=== PATIENT | male | born 1960 | race Two or more races ===

== ENCOUNTER 2025-04-19 02:44 | Inpatient (IN) | payer MEDICAID ==
[~2025-04-19] VITALS: Ht 160 cm; Wt 79.0 kg
--- NOTE | 2025-04-19 03:50 | Physician Documentation ---
History of Present Illness ~ General Chief Complaint: See Chief Complaint Stated Complaint: XFER Time Seen by MD: 03:44 History of Present Illness Initial Comments This is a 64-year-old gentleman who does not speak any Somali, presents as a transfer from [facility] for higher level of care and nephrology consultation. Record reviewed. The gentleman presented to the outside facility for evaluation of progressive worsening tremor in bilateral upper extremities. It has been going on for weeks, how ever got markedly worse for the last four days, progress to full body tremors with gait instability and weakness. No particular palliating or aggravating factors. No lateralizing weakness, the weakness is generalized. Denies any fever, chills, headache, nausea, vomiting, diarrhea. The gentleman has a known history of kidney disease, and was told before that he may need to transitioned to dialysis. Laboratory studies from the outside facility reviewed. CBC shows white count of 6.9, hemoglobin of 8.8 consistent with a anemia chronic kidney disease. Platelets are normal at 255. Chemistry showed borderline potassium of 5.4. BUN/creatinine showed RADHA on CKD of 74/5.4. Phosphorus was also elevated at 5.6. Troponin and BNP were negative. Coagulation panel shows INR of one. Normal. UA is nondiagnostic for UTI. CT head was obtained showed no acute intracranial process. Neurology was consulted. They evaluated the patient and recommended EEG as well as MRI. They do feel however that this is metabolic process. Medication Reconciliation Allergies: Coded Allergies: No Known Allergies (Unverified , 04/19/25) Review of Systems All Other Systems at this time: Reviewed and Negative Physical Exam Physical Exam Vital Signs: Source: Oral, Heart Rate: 83, Respiratory Rate: 15, BP: 162/76, Pulse Oximetry: 96, Weight: 68.180 Oxygen Flow Rate: 0 Physical Exam Physical examination: GENERAL: Awake, alert, oriented, GCS 15, no apparent distress, non-toxic appearing, answers questions, follows commands appropriately. I did not appreciate any tremor at this time. HEENT: Atraumatic, normocephalic, pupils equal, extraocular muscles intact Active gross movements, sclerae anicteric, mucus membranes moist, no stridor. NECK: Midline, no JVD CARDIOVASCULAR: Good skin perfusion without evidence of pallor, mottling. PULMONARY: Nonlabored, symmetric chest rise, no audible wheezing, no accessory muscle use, no respiratory distress, speaking in full sentences. GASTROINTESTINAL: Not distended. NEUROLOGIC: Lucid with normal mental status. Normal facial symmetry. Moves all extremities symmetrically and with purpose. No truncal ataxia. Speech is fluid without evidence of dysarthria or aphasia, no focal deficits appreciated. Gait not tested. EXTREMITIES: Acute deformities Skin: warm, dry PSYCHIATRIC: Normal affect, normal insight, normal concentration. Focused exam: [] Progress Results/Orders Results/Orders Vital Signs 04/19/25 02:49 Pulse 83 Resp 15 B/P (MAP) 162/76 Pulse Ox 96 O2 Flow Rate 0 Medical Decision Making Findings Facility Status: ED Holds, RME process The plan was discussed with the patient, who demonstrates clear understanding of the plan and is in agreement with the plan unless otherwise noted in the chart. All questions have been answered, all concerns were addressed unless otherwise documented. I was available throughout their ED stay for frequent reassessment and questions. Differential Diagnoses (considered and possible or likely): [Progression of chronic kidney disease, anemia of chronic kidney disease, potential need for dialysis, hyperkalemia, tremor secondary to uremia, less likely seizures] ??Differential Diagnoses (considered and unlikely, not requiring evaluation currently): [No evidence of trauma or lateralizing signs.] MDM Data Please see [facility] for the following: Independent Historians and external Records Review. Historian: [Patient] Independent Historians: ?[Record review] Medication Management: [Reviewed medication list] Social History and determinants: [Reviewed] Please see the body of the note for the following: Any independent int erpretations of ECG, imaging studies. All vitals signs/haemodynamics, ordered tests were independently reviewed and interpreted by myself. Nursing triage complaint and vitals reviewed, additional nursing notes were reviewed as available and I agree unless otherwise noted or documented in contradiction in the chart Vital Signs: Independently reviewed Labs: Independently interpreted Imaging: Independently interpreted Old Medical Records: Independently reviewed, see HPI for relevant summary and information Pulse Oximetry: [96%] interpreted as [normal on room air] by me [Merchandiser: [Regular Rate, Regular rhythm, no ectopy, NSR] reviewed and interpreted by me] Additionally notably showing: [Hemodynamically stable] Tests considered but not ordered include: [MRI and EEG can be done on an inpatient basis] Social Determinants of Health Impact: Patient was evaluated in [facility] [place] access to healthcare due to below par ratio of patient to medical providers. [] Comorbid Conditions Impacting Present Evaluation and Care/Treatment: [Chronic kidney disease] Management Discussions with other Healthcare Providers: [Hospitalist regarding admission] Treatment and Disposition Medication Management (Given or considered): []. See EMR for details Consideration for Hospitalization/Escalation/Deescalation of Care: Admission for observation has been considered, and appears to be necessary for neurology consultation and further management of his CKD and evaluation of tremor. ?ED Course:?[No clinical deterioration] ?Shared decision making:?[] Code status:?FULL Please see the full Electronic Medical Record for full details of nursing documentation, medications list, other records of complete past medical history and conditions, vital signs, laboratory studies, and any radiologic study interpretations by radiologists. Portions of this note were completed using [employer] dictation software and as a result there may exist minor errors in spelling. I have reviewed elements of past family and social history and agree as included in note. Departure Time of Disposition: 03:52 Disposition: 09 ADMITTED INPATIENT Admitted to Inpatient Unit: to hospitalist Impression: Primary Impression: Tremor Additional Impressions: Acute kidney injury Chronic kidney disease Hyperkalemia Anemia of chronic disease Condition: Stable Referrals: NO PRIMARY CARE PROVIDER (PCP) Signature Scribe Signature: No scribe Attestation: This note accurately reflects clinical decisions, work performed by myself, DO ANDERS Johnson NICHOLAS M DO Apr 19, 2025 03:50
--- NOTE | 2025-04-19 04:10 | ELECTROCARDIOGRAPH REPORT ---
[facility] Test Date: 2025-04-19 Test Time: 04:08:15 Pat Name: SHER HAYWOOD Department: [facility]- Patient ID: [facility]-[id number] Room: [place] [id number] Gender: M Blood Bank Order Control Clerk: : 1960 Requested By: BRAULIO MCNAMARA Order Number: [id number] Reading MD: Dr. Sanjeev Tidwell Measurements Intervals [place] Rate: 79 P: 39 [place]: 167 QRS: 17 QRSD: 85 T: 23 QT: 375 QTc: 430 Interpretive Statements Sinus rhythm Electronically Signed On 04-19-2025 20:57:[address] Sanjeev Tidwell Please click the below link to view image of tracing.
[2025-04-19] MEDS ORDERED: magnesium sulf-water 4G/100mL 100 ML IV PRN (04:30)
[2025-04-19] MEDS ORDERED: potassium Cl 40MEQ/1/2NS 520ml 520 ML IV PRN (04:30)
[2025-04-19] MEDS ORDERED: potassium Cl 20 mEq SR tablet PO PRN (04:30)
[2025-04-19] MEDS ORDERED: magnesium sulf-water 2g/50mL 50 ML IV PRN (04:30)
[2025-04-19] MEDS ORDERED: mag hydrox/Alum hydrox/simeth 30ml oral suspension PO PRN (04:30)
[2025-04-19] MEDS ORDERED: ondansetron/PF 4mg/2ml inj IV PRN (04:30)
[2025-04-19] MEDS ORDERED: magnesium hydroxide 30ml (MOM) UD suspension PO PRN (04:30)
[2025-04-19 04:59] LABS: MEAN PLATELET VOLUME 7.7 FL (7.4-10.4); RED CELL DISTRIBUTION WIDTH 14.1 % (11.5-14.5)
--- NOTE | 2025-04-19 05:11 | HISTORY AND PHYSICAL-Residence ---
History & Physical Providers to Resident Creating Document: STEPHON LEPE, RES ~ History of Present Illness Reason for Admit\Complaint: Tremors History of Present Illness This is a 64-year-old Tunisian-speaking male with a history of type 2 diabetes, CKD, hypertension was transferred from [place] for tremors. Most of the history was taken with the help of a Tunisian-speaking nurse and a train reservation clerk. The tremors started four days ago initially noted in his hands, later progressed to diffuse tremors including his head and trunk, leading to gait instability and weakness. He denied any headache, changes in vision, any focal weakness. Also denied any changes in his speech or facial asymmetry. Denied any recent changes in medication. Also denies any alcohol intake, caffeine, nicotine, drug use. He has a history of CKD and was told that he needs a referral for dialysis. Reports that two days ago he had decreased urine. Denies any burning sensation in the urine. Labs reviewed at the other facility showed a BUN of seventy-four, creatinine of 5.36. Neurology was consulted, recommended to consider EEG and MRI, but is of the opinion that it is likely mostly metabolic. Patient was transferred here for nephrology consultation. CT head done at that facility showed no acute intracranial abnormalities Patient reported that few years ago he did have seizures while he was in [place], was given some kind of injection which relieved tremors. Allergies: Coded Allergies: No Known Allergies (Unverified , 04/19/25) Past Medical History Past Medical History Hypertension Diabetes type 2 Diabetic neuropathy CKD Past Surgical History Surgical History Comment No surgical history Past Social History Social History Comment Denies history of smoking, alcohol use, drug use Lives with his at his home. Functionally independent ROS All Other Systems: Reviewed and Negative Constitutional: Denies: no symptoms reported, see HPI, chills, diaphoresis, fev er, malaise, weakness, other Eyes: Denies: no symptoms reported, see HPI, pain, discharge, blurred vision, double vision, itching, photophobia, redness, tearing, other ENT: Denies: no symptoms reported, see HPI, ear pain, ear bleeding, ear discharge, hearing loss, ear ringing, nose pain, nose bleeding, nose congestion, nose discharge, throat pain, throat swelling, voice change, mouth pain, mouth bleeding, mouth swelling, other Respiratory: Denies: no symptoms reported, see HPI, cough, orthopnea, shortness of breath, SOB with exertion, SOB at rest, stridor, wheezing, hemoptysis, pain with breathing, other Cardiovascular: Denies: no symptoms reported, see HPI, chest pain, left arm pain, diaphoresis, lightheadedness, syncope, edema, palpitations, irregular heart rate, other Neurological Tremors of bilateral hands, head, trunk Musculoskeletal: Denies: no symptoms reported, see HPI, pain, swelling, back pain, gout, joint pain, joint swelling, muscle pain, muscle swelling, muscle stiffness, neck pain, other Exam Vitals: Vital Signs Date Time Temp Pulse Resp B/P (MAP) Pulse Ox O2 Delivery O2 Flow Rate FiO2 04/19/25 04:13 97.8 84 137/74 (95) 96 0 04/19/25 02:49 15 General: General:, alert and awake, not in acute distress Head: Normocephalic, atraumatic Eyes: Pupils- 3mm, reacting to light, conjunctiva- anicteric Neck: Supple, no lymphadenopathy, no carotid bruit Respiratory: No use of accessory muscles of respiration, Bilateral normal vesicular breath sounds heard. No wheeze, rhochi or creps Cardiac: S1-S2 heard, rhythm regular, no murmur Abdomen: non distended, no tenderness, no organomegaly, bowel sounds - heard, \ Extremities: no clubbing, no pedal edema, no deformities, peripheral pulses - 2+ Skin: warm and dry, no rash, no purpura, lower lip wound Neuro: Awake, alert, oriented, speech is normal Cranial nerve exam-normal visual field, normal extraocular movements, less prominent nasolabial fold on the left side normal facial sensations and facial movements, normal hearing, uvula in midline, tongue protrusion and shoulder shrugging normal Strength-normal bulk, normal tone, bilateral upper and lower extremity 5/5, deep tendon reflexes-2, absent Babinski, absent pronator drift Tremors-action tremors present in bilateral upper extremities, head, trunk, Cerebellar-tremors noticed during finger-nose test Gait-could not be examined because of the tremors. Advance Care Planning Advanced Care plannin - 30 Minutes (I spent 17 minutes in discussing various resuscitative measures, the patient chose to be full code.) Additional Plan Assessment This is a 64-year-old male with a history of CKD, hypertension, type 2 diabetes mellitus was transferred from [place] because of bilateral tremors. The tremors are likely secondary to uremia. Plan End-stage renal disease Uremia Proteinuria, likely diabetic nephropathy Creatinine 5.36, BUN 74 Phosphorus 5.6, potassium 5.4 Urine analysis shows proteinuria Urine electrolytes ordered Consult nephrology in the morning for possible dialysis Renal diet Tremors likely secondary to uremia CT head at the outside facility showed no acute intracranial abnormality Urine drug screen ordered No alcohol, caffeine, nicotine use Hyperphosphatemia Hyperkalemia One dose of Kayexalate 30 ordered Started on PhosLo t.i.d. Follow up with repeat labs Type 2 diabetes mellitus A1c ordered started on low-dose insulin supplement protocol, adjust as necessary. Hypertension Currently blood pressure is in the normal range Continue patient's home medication amlodipine, hydralazine, losartan once the med rec is done. Code status: Full code DVT prophylaxis: Heparin Diet: Renal diet Lines/tubes: Peripheral IV line Stephon Lepe M.D PGY2 Plan reviewed with bedside team. Patient seen through remote audiovisual assessment through HIPAA compliant setup. All labs, flowsheets, and images reviewed Cumulative nonprocedural care time spent in directed patient care = 30 min Date of Service: Apr 19, 2025 Billing Provider: ENMA PIERCE MD, PRAVAHIKA, RELL Apr 19, 2025 05:11 AURELIO SHARMA MD Apr 19, 2025 06:40
[2025-04-19 05:23] LABS: CREATININE 5.26 MG/DL (0.60-1.10); TOTAL CARBON DIOXIDE 20.1 MMOL/L (24-32); eCRCL 12 ML/MIN; eGFR 11 ML/MIN
[2025-04-19 05:32] LABS: PHOSPHORUS 5.4 MG/DL (2.3-4.5); PRO BRAIN NATRIURETIC PEPTIDE 389 PG/ML (0-125)
[2025-04-19] MEDS ORDERED: dextrose 50%-water 50ml dispensing syringe IV PRN ×2 (05:35)
[2025-04-19] MEDS ORDERED: glucagon, human recombinant 1mg kit SUBCUT PRN (05:35)
[2025-04-19] MEDS ORDERED: DEXTROSE 15 GM of carb/4 tabs (each vial/BOTTLE has 4 tablets) PO PRN ×2 (05:35)
[2025-04-19 05:43] LABS: LEUKOCYTE ESTERASE ,URINE NEGATIVE (Neg); NITRITES, URINE NEGATIVE (Neg); OCCULT BLOOD,URINE TRACE-INTACT (Neg)
[2025-04-19 05:46] LABS: UA COLLECTION TYPE CLN CATCH MIDSTREAM
[2025-04-19 05:53] LABS: CREATININE,URINE RANDOM 44.0 MG/DL; UA UREA RANDOM 339.0 MG/DL; URINE AMPHETAMINE SCREEN NEGATIVE (Neg); URINE BARBITUATE SCREEN NEGATIVE (Neg); URINE BENZODIAZEPINES SCREEN NEGATIVE (Neg); URINE CANNABINOID SCREEN NEGATIVE (Neg); URINE COCAINE SCREEN NEGATIVE (Neg); URINE METHADONE SCREEN NEGATIVE (Neg); URINE OPIATE SCREEN NEGATIVE (Neg); URINE PHENCYCLIDINE SCREEN NEGATIVE (Neg)
[2025-04-19 05:56] LABS: SQUAMOUS EPITHELIAL CELL,UR FEW /LPF (FEW)
[2025-04-19 05:58] LABS: OSMOLALITY UA 296 MOSM/K (50-1400)
[2025-04-19] MEDS: sodium polystyrene sulfonate 15gm/60ml oral suspension PO ONE (06:06)
[2025-04-19 06:45] VITALS: BP 167/80; PULSE 79; RESP 16; TEMP 97.4; O2SAT 98
[2025-04-19] MEDS: INSULIN LISPRO 100 UNIT/ML INSULN.PEN MULTI-DOSE SQ SCH (07:00)
[2025-04-19 08:00] VITALS: RESP 16; O2SAT 97
[2025-04-19] MEDS: docusate sod 100mg capsule PO SCH (08:00)
[2025-04-19] MEDS: heparin, porcine 5000 units/ml vial SQ SCH (08:00)
[2025-04-19 10:00] VITALS: BP 153/73; PULSE 74; RESP 16; TEMP 98; O2SAT 96
--- NOTE | 2025-04-19 11:30 | PROGRESS NOTE ---
Clinical Note Clinical Note Progress Note: Patient is seen and examined. He has no new complaints. Discussed with RN. Patient has been seen by Dr. Combs from Nephrology who requested more labs as well as vitamin-D levels. I attempted to place a lab four vitamin-D, however this requires a COUNSEL approval. We will defer to Dr. Combs to ascertain if this level is indeed necessary to be checked and will have a bearing on patient is treatment plan and to obtain approval from the COUNSEL Gen. awake alert oriented asymptomatic HEENT: Normocephalic, atraumatic, pupils round reactive to light and acco mmodation, extraocular movements are intact, sclera anicteric, conjunctiva pinkish, moist oral mucosa, no rash or ulcers. NECK: Supple, no JVD, trachea midline. CHEST: Clear to auscultation, no wheezes crackles or rhonchi. HEART: Regular rate rhythm, no murmur gallop or rub. ABDOMEN: Soft, nontender, no organomegaly. EXTREMITIES: No cyanosis clubbing or edema. NEURO EXAM: Grossly nonfocal. MUSCULOSKELETAL : No joint swelling or deformities. SKIN: No rash or ulcers noted. Continue treat per Nephrology recommendations. . MISAEL GAN MD Apr 19, 2025 11:30
--- NOTE | 2025-04-19 11:31 | Visit Coding Note ---
Date of Service: Apr 19, 2025 Billing Provider: MISAEL GAN MD Common Visit Codes: NOT BILLABLE MISAEL GAN MD Apr 19, 2025 11:31
[2025-04-19] MEDS: calcium acetate 667mg (PhosLO) capsule PO SCH (12:49)
[2025-04-19] MEDS: K and/or MAG REPLACEMENT MC SCH (13:00)
[2025-04-19 13:26] LABS: ABSOLUTE RETICS # 24100.0 /CUMM (23000-93000)
[2025-04-19] MEDS ORDERED: HYDR50TA46 PO (15:38)
[2025-04-19] MEDS ORDERED: LINA5TAB4 PO (15:45)
[2025-04-19] MEDS ORDERED: LOSA-416 PO (15:46)
[2025-04-19] MEDS ORDERED: PREG50CA PO (15:47)
[2025-04-19] MEDS ORDERED: PANT-47 PO (15:48)
[2025-04-19] MEDS ORDERED: FURO-149 PO (15:49)
[2025-04-19] MEDS ORDERED: AMLO2.5T2 PO (15:50)
[2025-04-19 18:00] VITALS: BP 154/74; PULSE 74; RESP 14; TEMP 98.4; O2SAT 97
[2025-04-19 22:00] VITALS: BP 126/57; PULSE 72; RESP 17; TEMP 98.7; O2SAT 98
[2025-04-20 05:32] LABS: MEAN PLATELET VOLUME 7.8 FL (7.4-10.4); RED CELL DISTRIBUTION WIDTH 14.1 % (11.5-14.5)
[2025-04-20 05:50] LABS: CHOL/HDL RATIO 4.8 (0.00-4.99); CREATININE 4.74 MG/DL (0.60-1.10); LDL CHOLESTEROL 96 MG/DL (50-100); PHOSPHORUS 5.2 MG/DL (2.3-4.5); TOTAL CARBON DIOXIDE 21.6 MMOL/L (24-32); eCRCL 13 ML/MIN; eGFR 13 ML/MIN
[2025-04-20 06:00] VITALS: BP 162/77; PULSE 77; RESP 16; TEMP 98.3; O2SAT 98
[2025-04-20] MEDS: magnesium Cl slow-release 64mg tablet PO PRN (07:40)
[2025-04-20] MEDS: potassium Cl 20 mEq SR tablet PO PRN (12:02)
--- NOTE | 2025-04-20 17:48 | PROGRESS NOTE ---
Daily Progress Note Providers to CC ~ Antibiotic Timeout Antibiotic Ordered?: No Subjective No new complaints. Patient is seen resting comfortably Objective Vital Signs Date Time Temp Pulse Resp B/P (MAP) Pulse Ox O2 Delivery O2 Flow Rate FiO2 04/20/25 08:00 Room Air 04/20/25 06:00 98.3 77 16 162/77 (105) 98 04/19/25 06:24 0 Result Diagram: 04/20/25 0510 04/20/25 0510 Gen. awake alert oriented asymptomatic HEENT: Normocephalic, atraumatic, extraocular movements are intact, sclera anicteric, conjunctiva pinkish, moist oral mucosa, no rash or ulcers. NECK: Supple, no JVD, trachea midline. CHEST: Clear to auscultation, no wheezes crackles or rhonchi. HEART: Regular rate rhythm, no murmur gallop or rub. ABDOMEN: Soft, nontender, no organomegaly. EXTREMITIES: No cyanosis clubbing or edema. NEURO EXAM: Grossly nonfocal. MUSCULOSKELETAL : No joint swelling or deformities. SKIN: No rash or ulcers noted. Other Results Medications reviewed Problem\Assessment\Plan 64-year-old Cuban-speaking male with a history of type 2 diabetes, CKD, hypertension was transferred from [place] for tremors. 1. [place]/ CKD in likely medical renal disease. Patient is being followed by Nephrology Dr. Combs. Creatinine trending down. 2. Uremic tremors: Continue monitor . ? Need for dialysis . Await nephrology recommendations. 3. Diabetes mellitus: Carb controlled diet and hyper/hypoglycemia protocol and insulin coverage 4. Hypertension: IV hydralazine p.r.n. 5. Anemia: Of chronic disease. Continue monitor 6. Hyperphosphatemia: Continue PhosLo 7.Code status: Full code. Date of Service: Apr 20, 2025 Billing Provider: MISAEL GAN MD Common Visit Codes: [id number] INP/OBS CARE(HIGH) MISAEL GAN MD Apr 20, 2025 17:48
[2025-04-20 18:00] VITALS: BP 161/73; PULSE 75; RESP 14; TEMP 98.7; O2SAT 98
[2025-04-20] MEDS: SODIUM ZIRCONIUM CYCLOSILICATE 10 GM POWD.PACK PO SCH (19:56)
[2025-04-20 22:00] VITALS: BP 140/71; PULSE 76; RESP 16; TEMP 98.3; O2SAT 99
[2025-04-21 06:08] LABS: MEAN PLATELET VOLUME 8.0 FL (7.4-10.4); RED CELL DISTRIBUTION WIDTH 13.9 % (11.5-14.5)
[2025-04-21 06:35] LABS: CREATININE 4.41 MG/DL (0.60-1.10); PHOSPHORUS 4.4 MG/DL (2.3-4.5); TOTAL CARBON DIOXIDE 19.9 MMOL/L (24-32); eCRCL 14 ML/MIN; eGFR 14 ML/MIN
--- NOTE | 2025-04-21 10:06 | PROGRESS NOTE ---
Daily Progress Note Providers to CC ~ Antibiotic Timeout Antibiotic Ordered?: No Subjective No new complaints, patient is seen resting comfortably. Objective Vital Signs Date Time Temp Pulse Resp B/P (MAP) Pulse Ox O2 Delivery O2 Flow Rate FiO2 04/20/25 22:00 98.3 76 16 140/71 (94) 99 Room Air 04/19/25 06:24 0 Result Diagram: 04/21/2552504/21/25525 Gen. awake alert oriented asymptomatic HEENT: Normocephalic, atraumatic, extraocular movements are intact, sclera anicteric, conjunctiva pinkish, moist oral mucosa, no rash or ulcers. NECK: Supple, no JVD, trachea midline. CHEST: Clear to auscultation, no wheezes crackles or rhonchi. HEART: Regular rate rhythm, no murmur gallop or rub. ABDOMEN: Soft, nontender, no organomegaly. EXTREMITIES: No cyanosis clubbing or edema. NEURO EXAM: Grossly nonfocal. MUSCULOSKELETAL : No joint swelling or deformities. SKIN: No rash or ulcers noted. Other Results Medications reviewed Problem\Assessment\Plan 1. [place]/ CKD in likely medical renal disease. Discussed with Dr. Combs. Continue monitor creatinine. 2. Uremic tremors: Continue monitor 3. Diabetes mellitus: Carb controlled diet and hyper/hypoglycemia protocol and insulin coverage 4. Hypertension: IV hydralazine p.r.n. 5. Anemia: Of chronic disease. Continue monitor h/h , Transfuse for Hb less than 7 6. Hyperphosphatemia: Treat per nephrology recommendation . 7. Code status: Full code Date of Service: Apr 21, 2025 Billing Provider: MISAEL GAN MD Common Visit Codes: [id number] INP/OBS CARE(HIGH) MISAEL GAN MD Apr 21, 2025 10:06
[2025-04-21] MEDS ORDERED: AMLO10TA5 PO (12:08)
[2025-04-21] MEDS: SODIUM ZIRCONIUM CYCLOSILICATE 10 GM POWD.PACK PO SCH (12:30)
--- NOTE | 2025-04-21 12:49 | CONSULTATION REPORT ---
Consult Providers to CC ~ History of Present Illness Reason for Admit\Complaint: RADHA evaluation History of Present Illness Admitted to the hospital for tremor that is consistent with CKD5, he reports he has had CKD for many years and has not seen an test carrier, he reports tremors beginning a few days ago, with weakness and fatigue, we are asked to evaluate his CKD and make specific recommendations. Allergies: Coded Allergies: No Known Allergies (Unverified , 04/19/25) Home Medications Home Medications Active Reported Lasix (Furosemide) 40 Mg Tablet 1 Tab PO DAILY 30 Days PROTONIX tablet (Pantoprazole Sodium) 40 Mg Tablet.dr PO BID 30 Days Lyrica (Pregabalin) 50 Mg Capsule 1 Cap PO Q8H 30 Days Cozaar* (Losartan Potassium) 50 Mg Tablet 2 Tab PO DAILY 30 Days Tradjenta (Linagliptin) 5 Mg Tablet 1 Tab PO DAILY 30 Days Hydralazine HCl Unknown Strength Tablet 50 Mg PO QID 30 Days Take one tablet 4x daily Family History Family History: Patient reports no known family medical history. Exam Vitals: Vital Signs Date Time Temp Pulse Resp B/P (MAP) Pulse Ox O2 Delivery O2 Flow Rate FiO2 04/20/25 22:00 98.3 76 16 140/71 (94) 99 Room Air 04/19/25 06:24 0 RRR w/o murmur CTA B, no wheezes +BS, NT Mild tremors 1+ edema Diagnostic Data Last Recorded Lab Results: 04/21/2552504/21/25 05 Diagnostic Data: I & O 04/21/25 07:00 Intake Total 200 ml Output Total 100 ml Balance 100 ml Intake Oral 200 ml Output Urine Total 100 ml Problems: (1) Electrolyte abnormality Assessment & Plan: Consistent with CKD4/5 - Hyperkalemia Lokelma 10 GM TID - Furosemide 40 mg twice daily (2) Secondary hyperparathyroidism (of renal origin) Assessment & Plan: PTH 124, would rplace PO4 and Vit D first, the recheck after discharge (3) Abnormal acid-base balance Assessment & Plan: Advanced CKD - Sodium Bicarb 650 mg TID (4) Hyperuricemia Assessment & Plan: No history of gout, renal dose Allopurinol, monitor monthly until at goal, discussed diet - Allopurinol 100 mg daily (5) Hyperphosphatemia Assessment & Plan: Advanced CKD, goal less than 5.5 - Calcium acetate 667 mg with meals (6) Acute kidney injury superimposed on stage 4 chronic kidney disease Assessment & Plan: Most consistent with DM2, NTN, and NSAID use, his doctors have told him for years he had worsening renal function, but he was given little guidance on how to slow it's progression, now eGFR 14, goal is to preserve his renal function and plan for dialysis, he wants to go back to [place] to get dialysis, we can treat his CKD co-morbidities and he will most certainly not need dialysis for a period of time. (7) Anemia of chronic disease Status: Acute Assessment & Plan: Anemia-CKD - Iron studies - AMANDA indicated goal Hgb 10-11.5, EPO 10K units weekly after iron stores are normal - Iron studies, Ferritin ordered (8) Hyperkalemia Status: Acute (9) Tremor Status: Acute Assessment & Plan: He has some early symptoms of mild uremia, tremor, poor appetite, but no weight loss, mild weakness and fatigue, he will need dialysis soon, we discussed lower protein diet, will have swimming pool installer and servicer come visit with him TAMRA FIELDS III DO Apr 21, 2025 12:49
[2025-04-21 14:32] LABS: % IRON SATURATION 37 % (11-46)
[2025-04-21 18:00] VITALS: BP 171/121; PULSE 73; RESP 16; TEMP 97.9; O2SAT 98
[2025-04-21 19:40] VITALS: BP 168/76; PULSE 70
[2025-04-21] MEDS: furosemide 10 MG/1 ML 10ml inj IV ONE (20:13)
[2025-04-21 22:00] VITALS: BP 137/56; PULSE 67; RESP 16; TEMP 97.9; O2SAT 99
[2025-04-22 06:00] VITALS: BP 158/85; PULSE 70; RESP 18; TEMP 97.9; O2SAT 98
[2025-04-22 06:46] LABS: MEAN PLATELET VOLUME 8.1 FL (7.4-10.4); RED CELL DISTRIBUTION WIDTH 14.1 % (11.5-14.5)
[2025-04-22 07:02] LABS: CREATININE 4.49 MG/DL (0.60-1.10); PHOSPHORUS 5.2 MG/DL (2.3-4.5); TOTAL CARBON DIOXIDE 21.8 MMOL/L (24-32); eCRCL 14 ML/MIN; eGFR 13 ML/MIN
[2025-04-22 10:00] VITALS: BP 129/64; PULSE 80; RESP 15; TEMP 98; O2SAT 98
[2025-04-22 13:52] VITALS: BP_SYST 130; PULSE 62
[2025-04-22] MEDS ORDERED: NOR5T PO (15:51)
[2025-04-22] MEDS ORDERED: sodium bicarbonate tablet PO (15:51)
[2025-04-22] MEDS ORDERED: PHO667C PO (15:51)
[2025-04-22] MEDS ORDERED: SODI10PO PO (15:51)
[2025-04-22] MEDS ORDERED: ALLO100T25 PO (15:51)
--- NOTE | 2025-04-22 23:57 | PROGRESS NOTE ---
Progress Note Dictate Providers to CC ~ Antibiotic Ordered?: N/A Subjective Subjective Improved from yesterday with treatment for advanced CKD Objective Vitals Vital Signs Date Time Temp Pulse Resp B/P (MAP) Pulse Ox O2 Delivery O2 Flow Rate FiO2 04/22/25 13:52 62 04/22/25 10:00 98.0 15 129/64 (85) 98 Room Air 04/19/25 06:24 0 RRR w/o murmur CTAB, no wheezes +BS, NT No edema Lab Results: 04/22/25 0554 04/22/25 0554 Other Results I & O 04/22/25 07:00 Intake Total 1550 ml Output Total 2050 ml Balance -500 ml Intake Oral 1550 ml Output Urine Total 2050 ml # Voids 4 # Bowel Movements 1 Problem\Assessment\Plan Problems/Diagnosis: (1) Electrolyte abnormality Assessment & Plan: Consistent with CKD4/5 - Hyperkalemia Lokelma 10 GM TID - Furosemide 40 mg twice daily (2) Secondary hyperparathyroidism (of renal origin) Assessment & Plan: PTH 124, would rplace PO4 and Vit D first, the recheck after discharge (3) Abnormal acid-base balance Assessment & Plan: Advanced CKD - Sodium Bicarb 650 mg TID (4) Hyperuricemia Assessment & Plan: No history of gout, renal dose Allopurinol, monitor monthly until at goal, discussed diet - Allopurinol 100 mg daily (5) Hyperphosphatemia Assessment & Plan: Advanced CKD, goal less than 5.5 - Calcium acetate 667 mg with meals (6) Acute kidney injury superimposed on stage 4 chronic kidney disease Assessment & Plan: Most consistent with DM2, NTN, and NSAID use, his doctors have told him for years he had worsening renal function, but he was given little guidance on how to slow it's progression, now eGFR 14, goal is to preserve his renal function and plan for dialysis, he wants to go back to [place] to get dialysis, we can treat his CKD co-morbidities and he will most certainly not need dialysis for a period of time. (7) Anemia of chronic disease Assessment & Plan: Anemia-CKD - Iron studies - AMANDA indicated goal Hgb 10-11.5, EPO 10K units weekly after iron stores are normal - Iron studies, Ferritin ordered (8) Hyperkalemia (9) Tremor Assessment & Plan: He has some early symptoms of mild uremia, tremor, poor appetite, but no weight loss, mild weakness and fatigue, he will need dialysis soon, we discussed lower protein diet, will have bead trimmer come visit with him TAMRA FIELDS III DO Apr 22, 2025 23:57
== END 2025-04-22 18:19 | disposition home or self-care (01) | DRG 469 ==
LOC: ER 02:45 → ED HOLD 04:34 → EDBEDREQ 06:31 → ORTHO 4S 06:52
PROVIDERS: ADMIT Internal Medicine Pulmonary Disease; ATTEND Internal Medicine
DX: N17.9 Acute kidney failure, unspecified (principal); E87.4 Mixed disorder of acid-base balance; I12.0 Hypertensive chronic kidney disease with stage 5 chronic kidney disease or end stage renal disease; D63.1 Anemia in chronic kidney disease; E83.39 Other disorders of phosphorus metabolism; E87.5 Hyperkalemia; E11.22 Type 2 diabetes mellitus with diabetic chronic kidney disease; I12.9 Hypertensive chronic kidney disease with stage 1 through stage 4 chronic kidney disease, or unspecified chronic kidney disease; N18.6 End stage renal disease; N25.81 Secondary hyperparathyroidism of renal origin
CPT/HCPCS: 36415; 80053; 80061; 80305; 81001; 82570; 82728; 82948; 83036; 83540; 83550; 83735; 83880; 83935; 83970; 84100; 84132; 84133; 84300; 84443; 84484; 84540; 84550; 85025; 85045; 87081; 87207; 93005; 96372; 97110; 97116; 97161; 99285; G0378; J1644; J1815; J1938